=== PATIENT | female | born 1940 | race Two or more races ===

== ENCOUNTER 2023-10-17 14:33 | Inpatient (IN) | payer OTHER ==
[~2023-10-17] VITALS: Ht 157.5 cm; Wt 72.4 kg
[2023-10-17 16:05] LABS: Basophils # (auto) 0 10 ^3/uL (0-0.2); Basophils % (auto) 0.1 % (0.0-2.0); Eosinophils # (auto) 0 10 ^3/uL (0-0.8); Eosinophils % (auto) 0.2 % (0.0-7.0); Hematocrit 40.1 % (36.0-46.0); Hemoglobin 13.4 g/dL (12.2-16.2); Lymphocytes # (auto) 0.6 10 ^3/uL (0.4-5.4); Lymphocytes % (auto) 6.1 % (10.0-50.0); Mean Corpuscular Hemoglobin 28.1 pg (28.0-32.0); Mean Corpuscular Hgb Conc. 33.3 g/dL (32.0-36.0); Mean Corpuscular Volume 84.3 fL (80.0-100.0); Monocytes # (auto) 0.1 10 ^3/uL (0-1.3); Monocytes % (auto) 1.1 % (0.0-12.0); Neutrophils # (auto) 8.4 10 ^3/uL (1.6-8.6); Neutrophils % (auto) 92.5 % (37.0-80.0); Nucleated Red Blood Cells % 0.2 %; Red Blood Cells 4.75 10^6/uL (4.0-5.20); Red Cell Distribution Width 15.9 % (11.8-14.3); White Blood Cell 9.1 10^3/uL (4.4-10.8)
[2023-10-17 16:22] LABS: Alanine Aminotransferase 23 U/L (7-40); Albumin 3.2 g/dL (3.2-4.8); Alkaline Phosphatase 205 U/L (46-116); Anion Gap 23 (5-15); Aspartate Aminotransferase 39 U/L (13-40); Calcium 7.5 mg/dL (8.5-10.1); Carbon Dioxide 13 mmol/L (20-30); Chloride 102 mmol/L (98-107); Glucose 196 mg/dL (74-106); Potassium 2.9 mmol/L (3.5-5.1); Sodium 138 mmol/L (136-145)
[2023-10-17 16:23] LABS: Total Protein 5.9 g/dL (5.7-8.2)
[2023-10-17 16:27] LABS: Blood Urea Nitrogen 130 mg/dL (9-23)
[2023-10-17] MEDS: HYDROmorphone HCL 2 MG/ML VL/or syr IM ONE (18:26)
[2023-10-17 18:28] VITALS: O2SAT 93
[2023-10-17] MEDS ORDERED: HYDROmorphone HCL 2 MG/ML VL/or syr IV ONE (20:15)
[2023-10-17] MEDS: HYDROcodone-ACET 10/325MG TAB PO ONE (20:19)
[2023-10-17 20:27] LABS: INR 1.28 (0.9-1.15); Partial Thromboplastin Time 31.6 SEC (24.5-34.5); Prothrombin Time 13.2 sec (9.3-11.8)
[2023-10-17] MEDS: fentaNYL CITRATE 100 MCG/2 ML VL IV ONE (20:35)
[2023-10-17] MEDS: SODIUM CHLORIDE 0.9% 1,000 ML IV ONE (20:35)
[2023-10-17] MEDS: CALCIUM GLUC 1,000mg/50ml-NS 50 ML IV SCH (20:57)
[2023-10-17] MEDS: POTASSIUM CHL 20MEQ/100ML 100 ML IV SCH (22:24)
[2023-10-17] MEDS: LORazepam 2MG/ML-1ML VIAL IV ONE (23:04)
[2023-10-17 23:28] LABS: Lactic Acid w/Reflex 2.7 mmol/L (0.4-2.0)
[2023-10-17] MEDS: PIPERACILLIN-TAZOB 3.375GM 100 ML IV SCH (23:53)
[2023-10-18] VITALS (12 sets, daily range): BP systolic 91–123; BP diastolic 37–50; PULSE 77–94; RESP 14–26; TEMP 96.5; O2SAT 90–100
[2023-10-18] MEDS: SODIUM CHLORIDE 0.9% 1,000 ML IV ONE ×2 (00:08→10:09)
[2023-10-18] MEDS ORDERED: HYDROcodone-ACET 5/325MG TAB PO PRN (00:45)
[2023-10-18] MEDS ORDERED: ACETAMINOPHEN 325 MG TAB PO PRN (00:45)
[2023-10-18] MEDS ORDERED: HYDROmorphone HCL 2 MG/ML VL/or syr IV PRN (00:45)
[2023-10-18] MEDS ORDERED: MORPHINE SULFATE INJ 2 MG/ml SYRG IV PRN ×2 (00:45→07:00)
[2023-10-18] MEDS ORDERED: ONDANSETRON HCL 4 MG/2 ML VIAL IV PRN ×2 (00:45→07:00)
[2023-10-18] MEDS ORDERED: DEXTROSE (50%) 50ML SYRG IV PRN (00:45)
[2023-10-18] MEDS ORDERED: DOCUSATE SOD 100 MG CAP PO PRN ×2 (00:45→07:00)
[2023-10-18] MEDS ORDERED: NITROGLYCERIN 0.4 MG SL TAB SL PRN ×2 (00:45→07:00)
[2023-10-18 01:38] LABS: Urine Bacteria FEW /hpf (None Seen); Urine Blood 1+ /uL (Negative); Urine Clarity Turbid (Clear); Urine Color Yellow (Yellow); Urine Protein, UAD TRACE (Negative); Urine Specific Gravity 1.014 (1.001-1.035); Urine Sperm PRESENT /hpf (None Seen); Urine Urobilinogen 2 mg/dL (Negative); Urine WBC 322 /hpf (0 - 5); Urine WBC Clumps PRESENT /hpf (None Seen); Urine pH 5.5 (5.0-9.0)
[2023-10-18] MEDS: SODIUM CHLORIDE 0.9% 1,000 ML IV SCH (02:10)
[2023-10-18 02:26] LABS: Lactic Acid w/Reflex 2.9 mmol/L (0.4-2.0)
[2023-10-18 05:49] LABS: Hemoglobin 13.8 g/dL (12.2-16.2); Red Cell Distribution Width 15.7 % (11.8-14.3)
[2023-10-18 05:53] LABS: Hematocrit 42.2 % (36.0-46.0); Mean Corpuscular Hgb Conc. 32.7 g/dL (32.0-36.0); Mean Corpuscular Volume 85.7 fL (80.0-100.0); Red Blood Cells 4.93 10^6/uL (4.0-5.20)
[2023-10-18 05:57] LABS: Chloride 107 mmol/L (98-107); Sodium 141 mmol/L (136-145)
[2023-10-18 06:04] LABS: Glucose 164 mg/dL (74-106)
[2023-10-18 06:05] LABS: Alkaline Phosphatase 162 U/L (46-116); BUN/Creatinine Ratio 32.3 (10.0-20.0)
[2023-10-18] MEDS: ACCU-CHEK COMFORT CURVE STRIP VI SCH (06:05)
[2023-10-18 06:06] LABS: Alanine Aminotransferase 12 U/L (7-40); Aspartate Aminotransferase 40 U/L (13-40)
[2023-10-18 06:07] LABS: Bilirubin, Total 1.1 mg/dL (0.2-1.0)
[2023-10-18 06:08] LABS: White Blood Cell 38.8 10^3/uL (4.4-10.8)
[2023-10-18 06:09] LABS: Basophils % (manual) 0 (0.0-2.0); Blast Cells 0; Eosinophils % (manual) 0 (0-7); Metamyelocytes % 0; Promyelocytes % 0; Reactive Lymphocytes 0
[2023-10-18 06:13] LABS: Blood Urea Nitrogen 105 mg/dL (9-23); Carbon Dioxide < 10 mmol/L (20-30)
[2023-10-18 06:15] LABS: CRP High Sensitivity 17.01 mg/dL (<1.0)
[2023-10-18 06:35] LABS: Band Neutrophils % (manual) 33; Giant Platelets Few; Large Platelets FEW; Lymphocytes % (manual) 1 (10.0-50.0); Monocytes % (manual) 2 (0-12); Myelocytes % 1; Platelet Estimate Adequate
[2023-10-18] MEDS: InsuLIN REG 1unit/0.01ml Soln (100units/ml) SC SCH (06:43)
[2023-10-18] MEDS ORDERED: VANCOMYCIN PER PHARMACY 0 MG IV SCH (07:00)
[2023-10-18 07:44] LABS: Hematocrit 43.3 % (36.0-46.0); Hemoglobin 13.7 g/dL (12.2-16.2); Mean Corpuscular Hemoglobin 28.1 pg (28.0-32.0); Mean Corpuscular Hgb Conc. 31.7 g/dL (32.0-36.0); Mean Corpuscular Volume 88.5 fL (80.0-100.0); Red Blood Cells 4.89 10^6/uL (4.0-5.20); Red Cell Distribution Width 16.4 % (11.8-14.3)
[2023-10-18] MEDS: CALCIUM GLUC 1,000mg/50ml-NS 50 ML IV ONE (07:52)
[2023-10-18 08:04] LABS: White Blood Cell 38.1 10^3/uL (4.4-10.8)
[2023-10-18 08:06] LABS: Basophils % (manual) 0 (0.0-2.0); Blast Cells 0; Eosinophils % (manual) 0 (0-7); Metamyelocytes % 0; Myelocytes % 0; Promyelocytes % 0; Reactive Lymphocytes 0
[2023-10-18 08:08] LABS: Alanine Aminotransferase 20 U/L (7-40); Alkaline Phosphatase 156 U/L (46-116); Aspartate Aminotransferase 42 U/L (13-40); Calcium 8.1 mg/dL (8.5-10.1); Chloride 108 mmol/L (98-107); Glucose 172 mg/dL (74-106); Potassium 4.2 mmol/L (3.5-5.1); Sodium 141 mmol/L (136-145); Total Protein 6.1 g/dL (5.7-8.2)
[2023-10-18 08:16] LABS: Anion Gap 23 (5-15); Carbon Dioxide < 10 mmol/L (20-30)
[2023-10-18 08:16] LABS: Base Excess -17.3 mmol/L (-2.0-2.0)
[2023-10-18] MEDS: VANCOMYCIN 1GM/200ML 200 ML IV ONE ×2 (08:30→08:46)
[2023-10-18 08:53] LABS: BUN/Creatinine Ratio 28.3 (10.0-20.0); Blood Urea Nitrogen 95 mg/dL (9-23)
[2023-10-18] MEDS ORDERED: ROCURONIUM 10MG/ML 10ML VIAL IV ONE (09:00)
[2023-10-18] MEDS ORDERED: ETOMIDATE (2MG/ML) 20ML VIAL IV ONE (09:00)
[2023-10-18 09:12] LABS: Band Neutrophils % (manual) 36; Lymphocytes % (manual) 4 (10.0-50.0); Monocytes % (manual) 3 (0-12); Platelet Estimate Adequate
[2023-10-18] MEDS: ETOMIDATE (2MG/ML) 20ML VIAL IV ONE (09:20)
[2023-10-18] MEDS: ROCURONIUM 10MG/ML 10ML VIAL IV ONE (09:22)
[2023-10-18] MEDS: NOREPINEPHRINE 8 MG/250ML KIT 250 ML IV SCH (09:45)
[2023-10-18] MEDS: MIDAZOLAM DRIP 50 mg/50mL 50 ML IV SCH (09:50)
[2023-10-18] MEDS: CEFEPIME 1GM/ 50ML 50 ML IV SCH (10:00)
[2023-10-18] MEDS: SODIUM BICARB 8.4% 50Meq/50ml SYR Vial IV ONE ×2 (10:09→20:00)
[2023-10-18 10:56] LABS: Hematocrit 37.5 % (36.0-46.0); Hemoglobin 12.1 g/dL (12.2-16.2)
[2023-10-18] MEDS: SODIUM BICARB 50mEq/50ml Vial 150 ML in D5W 5% 1,000 ML IV SCH (11:05)
[2023-10-18] MEDS: SODIUM CHLORIDE 0.9% 500 ML IV ONE (13:12)
[2023-10-18] MEDS ORDERED: MEROPENEM 500MG IVPB 50 ML IV SCH (13:15)
[2023-10-18] MEDS: AZITHROMYCIN 500MG/ 250ML 250 ML IV ONE (13:49)
[2023-10-18 14:53] LABS: Base Excess -10.8 mmol/L (-2.0-2.0)
[2023-10-18 15:14] LABS: Chloride 105 mmol/L (98-107); Potassium 3.8 mmol/L (3.5-5.1); Sodium 143 mmol/L (136-145)
[2023-10-18 15:15] LABS: Anion Gap 16 (5-15); Calcium 7.7 mg/dL (8.7-10.4); Carbon Dioxide 22 mmol/L (20-30)
[2023-10-18 15:20] LABS: BUN/Creatinine Ratio 31.9 (10.0-20.0); Glucose 252 mg/dL (74-106)
[2023-10-18 15:25] LABS: Lactic Acid w/Reflex 3.7 mmol/L (0.4-2.0)
[2023-10-18 15:26] LABS: Blood Urea Nitrogen 120 mg/dL (9-23)
[2023-10-18] MEDS: LIDOCAINE 2%HCL (LOCAL ANESTH.) INJ 10ml MDV ONE (16:35)
[2023-10-18 21:26] LABS: Base Excess -6.5 mmol/L (-2.0-2.0)
[2023-10-19] VITALS (100 sets, daily range): BP systolic 89–141; BP diastolic 26–81; PULSE 82–110; RESP 14–26; TEMP 97.2–99; O2SAT 81–99
[2023-10-19] MEDS ORDERED: ATOR40TA52 PO (03:59)
[2023-10-19] MEDS ORDERED: ATEN100T PO (03:59)
[2023-10-19] MEDS ORDERED: PIOG15TA25 PO (03:59)
[2023-10-19] MEDS ORDERED: BUPR75TA96 PO (03:59)
[2023-10-19 04:03] LABS: Hematocrit 37.9 % (36.0-46.0); Hemoglobin 12.6 g/dL (12.2-16.2); Mean Corpuscular Hemoglobin 28.3 pg (28.0-32.0); Mean Corpuscular Hgb Conc. 33.2 g/dL (32.0-36.0); Mean Corpuscular Volume 85.2 fL (80.0-100.0); Red Blood Cells 4.45 10^6/uL (4.0-5.20)
[2023-10-19 04:23] LABS: Basophils % (manual) 0 (0.0-2.0); Blast Cells 0; Eosinophils % (manual) 0 (0-7); Reactive Lymphocytes 0; White Blood Cell 38.7 10^3/uL (4.4-10.8)
[2023-10-19 04:40] LABS: Alanine Aminotransferase 29 U/L (7-40); Albumin 2.4 g/dL (3.2-4.8); Alkaline Phosphatase 138 U/L (46-116); Anion Gap 17 (5-15); Aspartate Aminotransferase 117 U/L (13-40); BUN/Creatinine Ratio 33.2 (10.0-20.0); Calcium 7.2 mg/dL (8.7-10.4); Carbon Dioxide 26 mmol/L (20-30); Chloride 103 mmol/L (98-107); Glucose 210 mg/dL (74-106); Potassium 3.1 mmol/L (3.5-5.1); Sodium 146 mmol/L (136-145)
[2023-10-19 04:41] LABS: Bilirubin, Total 0.7 mg/dL (0.2-1.0); Total Protein 4.8 g/dL (5.7-8.2)
[2023-10-19 04:46] LABS: Blood Urea Nitrogen 117 mg/dL (9-23)
[2023-10-19 06:49] LABS: Lymphocytes % (manual) 5 (10.0-50.0); Metamyelocytes % 3; Monocytes % (manual) 1 (0-12)
[2023-10-19 06:53] LABS: Band Neutrophils % (manual) 38; Myelocytes % 2; Promyelocytes % 1
[2023-10-19 06:55] LABS: Large Platelets FEW; Platelet Estimate Adequate
[2023-10-19 07:00] LABS: Base Excess -1.3 mmol/L (-2.0-2.0)
[2023-10-19] MEDS: AZITHROMYCIN 500MG/ 250ML 250 ML IV SCH (07:38)
[2023-10-19] MEDS: POTASSIUM CHL 20MEQ/100ML 100 ML IV SCH (08:35)
[2023-10-19] MEDS ORDERED: VANCOMYCIN PER PHARMACY 0 MG IV SCH (10:00)
[2023-10-19] MEDS: MEROPENEM 500MG IVPB 50 ML IV SCH (11:45)
[2023-10-19] MEDS: LINEZOLID 600MG/300ML 300 ML IV SCH (12:39)
[2023-10-19] MEDS: FUROSEMIDE 100 MG/10ML VIAL IV ONE (13:15)
[2023-10-19] MEDS ORDERED: PIOG1TAB36 PO (14:05)
[2023-10-19] MEDS ORDERED: HYDR25TA4 PO (14:10)
[2023-10-19] MEDS ORDERED: GABA-1308 PO (14:10)
[2023-10-19] MEDS ORDERED: ALEN70TA74 PO (14:10)
[2023-10-19] MEDS ORDERED: BACL10TA PO (14:10)
[2023-10-19] MEDS ORDERED: IPRA0.06 NAS (14:10)
[2023-10-19] MEDS ORDERED: LISI40TA16 PO (14:10)
[2023-10-19] MEDS ORDERED: TPN PER PHARMACY 0 ML IV SCH (16:00)
[2023-10-19] MEDS ORDERED: DEXTROSE (50%) 50ML SYRG IV SCH (16:30)
[2023-10-19] MEDS: InsuLIN REG 1unit/0.01ml Soln (100units/ml) SC SCH (17:01)
[2023-10-19] MEDS: ACCU-CHEK COMFORT CURVE STRIP VI SCH (17:01)
[2023-10-19] MEDS: AMINO ACID INFUSION IN D5W 1,000 ML IV NR (20:36)
[2023-10-19] MEDS: LACTULOSE 20Gm/30ML SOLN PO SCH (21:54)
[2023-10-19] MEDS ORDERED: LINEZOLID 600MG/300ML 300 ML IV SCH (22:00)
[2023-10-20] VITALS (105 sets, daily range): BP systolic 76–157; BP diastolic 13–80; PULSE 72–121; RESP 8–35; TEMP 97.5–99.3; O2SAT 92–100
[2023-10-20 04:09] LABS: Hematocrit 36.9 % (36.0-46.0); Mean Corpuscular Hemoglobin 27.6 pg (28.0-32.0); Mean Corpuscular Hgb Conc. 32.7 g/dL (32.0-36.0); Mean Corpuscular Volume 84.5 fL (80.0-100.0); Red Blood Cells 4.36 10^6/uL (4.0-5.20)
[2023-10-20 04:19] LABS: White Blood Cell 37.2 10^3/uL (4.4-10.8)
[2023-10-20 04:21] LABS: Basophils % (manual) 0 (0.0-2.0); Blast Cells 0; Eosinophils % (manual) 0 (0-7); Metamyelocytes % 0; Myelocytes % 0; Promyelocytes % 0; Reactive Lymphocytes 0
[2023-10-20 04:39] LABS: Alanine Aminotransferase 33 U/L (7-40); Albumin 2.2 g/dL (3.2-4.8); Alkaline Phosphatase 142 U/L (46-116); Anion Gap 14 (5-15); Aspartate Aminotransferase 80 U/L (13-40); BUN/Creatinine Ratio 32.7 (10.0-20.0); Calcium 7.3 mg/dL (8.7-10.4); Carbon Dioxide 29 mmol/L (20-30); Chloride 94 mmol/L (98-107); Glucose 318 mg/dL (74-106); Magnesium 1.7 mg/dL (1.6-2.6); Potassium 3.3 mmol/L (3.5-5.1); Sodium 137 mmol/L (136-145)
[2023-10-20 04:40] LABS: Bilirubin, Total 0.6 mg/dL (0.2-1.0); Phosphorus 6.5 mg/dL (2.4-5.1); Total Protein 4.4 g/dL (5.7-8.2)
[2023-10-20 04:46] LABS: Blood Urea Nitrogen 111 mg/dL (9-23); Lactic Acid w/Reflex 4.8 mmol/L (0.4-2.0)
[2023-10-20 05:06] LABS: Band Neutrophils % (manual) 21; Lymphocytes % (manual) 5 (10.0-50.0); Monocytes % (manual) 6 (0-12); Platelet Estimate Adequate
[2023-10-20 05:07] LABS: Large Platelets FEW
[2023-10-20 05:31] LABS: Triglycerides 97 mg/dL (< 150)
[2023-10-20] MEDS ORDERED: VANCOMYCIN 500 MG in D5W 5% 100 ML IV SCH (06:00)
[2023-10-20 07:08] LABS: Base Excess 4.4 mmol/L (-2.0-2.0)
[2023-10-20] MEDS: MAGNESIUM SULFATE 1GM/100ML 100 ML IV SCH (08:43)
[2023-10-20] MEDS: POTASSIUM CHL 20MEQ/100ML 100 ML IV ONE (08:45)
[2023-10-20] MEDS ORDERED: TPN PER PHARMACY 0 ML IV SCH (08:45)
[2023-10-20] MEDS: PANTOPRAZOLE 40 MG/10 ML VIAL INJ IV SCH (09:48)
[2023-10-20] MEDS: CALCIUM GLUC 1,000mg/50ml-NS 50 ML IV ONE (09:52)
[2023-10-20] MEDS: fentaNYL Drip 2500mCg/250mlNS 250 ML IV SCH (12:09)
[2023-10-20] MEDS: FUROSEMIDE 40 MG/4 ML VIAL IV ONE (15:27)
[2023-10-20] MEDS: PHENYLEPHRINE IV 250 ML IV ONE (16:43)
[2023-10-20] MEDS: VASOPRESSIN 20 UNITS in SODIUM CHL 0.9% 99 ML IV SCH (16:45)
[2023-10-20 17:00] LABS: Base Excess 2.3 mmol/L (-2.0-2.0)
[2023-10-20] MEDS: EPINEPHrine HCL 250 ML IV SCH (17:00)
[2023-10-20] MEDS: PHENYLEPHRINE IV 250 ML IV SCH (17:00)
[2023-10-20 19:26] LABS: Hematocrit 39.7 % (36.0-46.0)
[2023-10-20 19:29] LABS: Hemoglobin 12.8 g/dL (12.2-16.2); Mean Corpuscular Hemoglobin 27.6 pg (28.0-32.0); Mean Corpuscular Hgb Conc. 32.3 g/dL (32.0-36.0); Mean Corpuscular Volume 85.3 fL (80.0-100.0); Red Blood Cells 4.66 10^6/uL (4.0-5.20)
[2023-10-20 19:42] LABS: Anion Gap 11 (5-15); Carbon Dioxide 28 mmol/L (20-30); Chloride 91 mmol/L (98-107); Potassium 3.3 mmol/L (3.5-5.1)
[2023-10-20 19:43] LABS: Calcium 7.9 mg/dL (8.7-10.4)
[2023-10-20 19:46] LABS: White Blood Cell 44.9 10^3/uL (4.4-10.8)
[2023-10-20 19:47] LABS: Basophils % (manual) 0 (0.0-2.0); Blast Cells 0; Eosinophils % (manual) 0 (0-7); Metamyelocytes % 0; Myelocytes % 0; Promyelocytes % 0; Reactive Lymphocytes 0
[2023-10-20 19:48] LABS: BUN/Creatinine Ratio 42.1 (10.0-20.0); Glucose 278 mg/dL (74-106); Magnesium 2.1 mg/dL (1.6-2.6)
[2023-10-20 19:55] LABS: Sodium 130 mmol/L (136-145)
[2023-10-20] MEDS: TPN*HIGH CONC* PER PHARMACY IV NR (19:55)
[2023-10-20 19:57] LABS: Blood Urea Nitrogen 134 mg/dL (9-23); Lactic Acid w/Reflex 3.4 mmol/L (0.4-2.0)
[2023-10-20 20:01] LABS: Band Neutrophils % (manual) 14; Lymphocytes % (manual) 4 (10.0-50.0); Monocytes % (manual) 3 (0-12); Platelet Estimate Adequate; RBC Morphology Normal
[2023-10-21] VITALS (106 sets, daily range): BP systolic 59–173; BP diastolic 25–67; PULSE 83–135; RESP 12–18; TEMP 97.2–100; O2SAT 90–100
[2023-10-21 04:05] LABS: Hemoglobin 12.8 g/dL (12.2-16.2); Mean Corpuscular Hgb Conc. 32.6 g/dL (32.0-36.0)
[2023-10-21 04:08] LABS: Hematocrit 39.4 % (36.0-46.0); Mean Corpuscular Hemoglobin 27.8 pg (28.0-32.0); Mean Corpuscular Volume 85.4 fL (80.0-100.0); Red Blood Cells 4.61 10^6/uL (4.0-5.20); Red Cell Distribution Width 15.9 % (11.8-14.3)
[2023-10-21 04:19] LABS: Alanine Aminotransferase 26 U/L (7-40); Albumin 2.2 g/dL (3.2-4.8); Alkaline Phosphatase 170 U/L (46-116); Anion Gap 13 (5-15); Aspartate Aminotransferase 44 U/L (13-40); BUN/Creatinine Ratio 33.3 (10.0-20.0); Bilirubin, Total 0.6 mg/dL (0.2-1.0); Calcium 8.3 mg/dL (8.7-10.4); Carbon Dioxide 26 mmol/L (20-30); Chloride 89 mmol/L (98-107); Glucose 380 mg/dL (74-106); Magnesium 2.2 mg/dL (1.6-2.6); Potassium 3.5 mmol/L (3.5-5.1); Sodium 128 mmol/L (136-145); Total Protein 4.5 g/dL (5.7-8.2)
[2023-10-21 04:36] LABS: White Blood Cell 37.6 10^3/uL (4.4-10.8)
[2023-10-21 04:38] LABS: Basophils % (manual) 0 (0.0-2.0); Blast Cells 0; Eosinophils % (manual) 0 (0-7); Myelocytes % 0; Promyelocytes % 0; Reactive Lymphocytes 0
[2023-10-21 04:47] LABS: Blood Urea Nitrogen 108 mg/dL (9-23)
[2023-10-21 04:52] LABS: Lactic Acid w/Reflex 3.1 mmol/L (0.4-2.0)
[2023-10-21 04:59] LABS: Phosphorus 7.4 mg/dL (2.4-5.1)
[2023-10-21 08:15] LABS: Base Excess -0.7 mmol/L (-2.0-2.0)
[2023-10-21 08:51] LABS: Band Neutrophils % (manual) 56; Lymphocytes % (manual) 4 (10.0-50.0); Metamyelocytes % 4; Monocytes % (manual) 8 (0-12); Platelet Estimate Decreased
[2023-10-21 09:20] LABS: Hepatitis B Core Total AB Negative (Negative)
[2023-10-21] MEDS: FUROSEMIDE 100 MG/10ML VIAL IV SCH (10:16)
[2023-10-21] MEDS: POTASSIUM CHL 20MEQ/100ML 100 ML IV ONE (10:19)
[2023-10-21] MEDS: INSULIN LANTUS (GLARGINE) 1 /0.01ml (100units/ml) SC SCH (10:37)
[2023-10-21 11:16] LABS: Base Excess -5.2 mmol/L (-2.0-2.0)
[2023-10-21 11:54] LABS: Hepatitis A Total Antibody Positive (Negative); Hepatitis B Surface Antibody Negative (Negative); Hepatitis B Surface Antigen Negative (Negative); Hepatitis C Antibody Negative (Negative)
[2023-10-21 12:34] LABS: Base Excess -0.2 mmol/L (-2.0-2.0)
[2023-10-21] MEDS: TPN*HIGH CONC* PER PHARMACY IV NR (19:43)
[2023-10-22] VITALS (74 sets, daily range): BP systolic 45–186; BP diastolic 12–67; PULSE 70–133; RESP 7–18; TEMP 96.4–100.2; O2SAT 52–99
[2023-10-22 04:37] LABS: Alanine Aminotransferase 19 U/L (7-40); Alkaline Phosphatase 174 U/L (46-116); Anion Gap 11 (5-15); Aspartate Aminotransferase 31 U/L (13-40); BUN/Creatinine Ratio 32.6 (10.0-20.0); Calcium 8.7 mg/dL (8.7-10.4); Carbon Dioxide 24 mmol/L (20-30); Chloride 92 mmol/L (98-107); Glucose 247 mg/dL (74-106); Magnesium 2.1 mg/dL (1.6-2.6); Potassium 3.9 mmol/L (3.5-5.1); Sodium 127 mmol/L (136-145)
[2023-10-22 04:38] LABS: Bilirubin, Total 0.8 mg/dL (0.2-1.0); Total Protein 4.3 g/dL (5.7-8.2)
[2023-10-22 04:43] LABS: Blood Urea Nitrogen 72 mg/dL (9-23)
[2023-10-22 04:54] LABS: Hemoglobin 12.9 g/dL (12.2-16.2)
[2023-10-22 04:56] LABS: Hematocrit 39.8 % (36.0-46.0); Mean Corpuscular Hemoglobin 28.2 pg (28.0-32.0); Mean Corpuscular Hgb Conc. 32.4 g/dL (32.0-36.0); Red Blood Cells 4.57 10^6/uL (4.0-5.20); Red Cell Distribution Width 15.7 % (11.8-14.3)
[2023-10-22 05:05] LABS: Phosphorus 4.9 mg/dL (2.4-5.1); White Blood Cell 30.1 10^3/uL (4.4-10.8)
[2023-10-22 05:06] LABS: Basophils % (manual) 0 (0.0-2.0); Blast Cells 0; Metamyelocytes % 0; Myelocytes % 0; Promyelocytes % 0; Reactive Lymphocytes 0
[2023-10-22 06:29] LABS: Band Neutrophils % (manual) 2; Eosinophils % (manual) 1 (0-7); Lymphocytes % (manual) 8 (10.0-50.0); Monocytes % (manual) 7 (0-12); Platelet Estimate Decreased
[2023-10-22 06:30] LABS: Anisocytosis Slight; Large Platelets FEW
[2023-10-22 08:07] LABS: Base Excess -0.7 mmol/L (-2.0-2.0)
[2023-10-22] MEDS: ALBUMIN 25% 100 ML IV ONE (09:15)
[2023-10-22] MEDS ORDERED: SODIUM CHL 0.9% 1000 ML BAG XX ONE (10:00)
[2023-10-22] MEDS ORDERED: Nepro With Carb Steady 1 Liter Bottle GT SCH (14:45)
[2023-10-22] MEDS: LORazepam 2MG/ML-1ML VIAL IV PRN (16:29)
[2023-10-22] MEDS: MORPHINE SULFATE INJ 2 MG/ml SYRG IV PRN (16:30)
[2023-10-22] MEDS ORDERED: TPN*HIGH CONC* PER PHARMACY IV NR (20:00)
== END 2023-10-22 21:13 | DRG 871 ==
LOC: ER 14:33 → UNDOADMIN 10-18 00:53 → TELE 10-18 00:53 → ICU WEST 10-19 02:35
PROVIDERS: ADMIT Internal Medicine Pulmonary Disease; ATTEND Internal Medicine Pulmonary Disease
PROC: 0F9030Z Drainage of Liver with Drainage Device, Percutaneous Approach (ICD-10-PCS; principal; 2023-10-18)
PROC: 02H633Z Insertion of Infusion Device into Right Atrium, Percutaneous Approach (ICD-10-PCS; 2023-10-18)
PROC: B548ZZA Ultrasonography of Superior Vena Cava, Guidance (ICD-10-PCS; 2023-10-18)
PROC: 0BH17EZ Insertion of Endotracheal Airway into Trachea, Via Natural or Artificial Opening (ICD-10-PCS; 2023-10-18)
PROC: 5A1945Z Respiratory Ventilation, 24-96 Consecutive Hours (ICD-10-PCS; 2023-10-18)
PROC: 0D9670Z Drainage of Stomach with Drainage Device, Via Natural or Artificial Opening (ICD-10-PCS; 2023-10-19)
PROC: 5A1D70Z Performance of Urinary Filtration, Intermittent, Less than 6 Hours Per Day (ICD-10-PCS; 2023-10-21)
PROC: 02HV33Z Insertion of Infusion Device into Superior Vena Cava, Percutaneous Approach (ICD-10-PCS; 2023-10-22)
PROC: B548ZZA Ultrasonography of Superior Vena Cava, Guidance (ICD-10-PCS; 2023-10-22)
PROC: 04HY32Z Insertion of Monitoring Device into Lower Artery, Percutaneous Approach (ICD-10-PCS; 2023-10-22)
PROC: 5A1D70Z Performance of Urinary Filtration, Intermittent, Less than 6 Hours Per Day (ICD-10-PCS; 2023-10-22)
DX: A41.9 Sepsis, unspecified organism (principal); G93.41 Metabolic encephalopathy; J15.69 Pneumonia due to other Gram-negative bacteria; J96.00 Acute respiratory failure, unspecified whether with hypoxia or hypercapnia; R65.21 Severe sepsis with septic shock; K75.0 Abscess of liver; K65.1 Peritoneal abscess; N17.9 Acute kidney failure, unspecified; N39.0 Urinary tract infection, site not specified; K82.A2 Perforation of gallbladder in cholecystitis; E87.20 Acidosis, unspecified; R18.8 Other ascites; K81.0 Acute cholecystitis; K74.60 Unspecified cirrhosis of liver; I49.1 Atrial premature depolarization; Z66 Do not resuscitate; E87.6 Hypokalemia; I10 Essential (primary) hypertension; R58 Hemorrhage, not elsewhere classified; E11.9 Type 2 diabetes mellitus without complications; I48.91 Unspecified atrial fibrillation; M81.0 Age-related osteoporosis without current pathological fracture; E78.00 Pure hypercholesterolemia, unspecified; J45.909 Unspecified asthma, uncomplicated; Z79.899 Other long term (current) drug therapy
CPT/HCPCS: 31500; 36415; 36600; 70450; 71045; 71046; 74150; 74176; 75989; 76705; 76942; 80048; 80053; 80202; 80320; 81001; 82010; 82140; 82570; 82805; 82962; 83605; 83735; 83880; 84100; 84478; 84484; 85007; 85014; 85018; 85025; 85027; 85610; 85730; 86038; 86141; 86704; 86706; 86708; 86803; 87040; 87070; 87077; 87081; 87086; 87186; 87205; 87340; 90935; 93005; 93306; 94002; 94003; C1729; C9113; G0378; J1642; J1815; J2001; J2185; J2250; J2543; J3480; J7060; J7131; P9047